=== PATIENT | female | born 1990 | race Caucasian/White ===

== ENCOUNTER 2023-05-15 09:51 | Emergency (ER) | payer OTHER, SELFPAY ==
[2023-05-15 09:54] VITALS: BP 110/45
--- NOTE | 2023-05-15 10:41 | ED.GENMED ---
History of Present Illness
General
Chief Complaint: Numbness
Source: patient
Time Seen by Provider: 05/15/23 10:02
Travel History
Have you had any contact with someone who has COVID-19?: No
Do you have any symptoms of coronavirus? Fever > 100 degrees, chills, cough, shortness of breath, sore throat, loss of taste or smell, muscle aches, or headache?: No
History of Present Illness
History of Present Illness:
32-year-old female presenting to the emergency department for evaluation of a multitude of symptoms that been ongoing for the last few months including various areas of paresthesia all over her body, facial/sinus congestion, today noticed some
difficulty breathing and chest discomfort which is what ultimately prompted her to come to the ER for further evaluation. Patient notes that sometime in the middle of January she started experiencing paresthesia and numbness sensation on her right
leg that over time spread to various areas of her body. Patient initially presented to [facility] where she had been admitted 1 time where they had performed an ultrasound of her leg to rule out DVT as well as MRI of her head and
back area which did not reveal any significant findings. Patient went back to their facility due to progressive and worsening of the symptoms without any specific etiology is found but notes that she had an elevated P ANCA test and is currently
scheduled to see a hotel or motel room service supervisor towards the end of May. Also of note, patient had an endoscopy due to some swallowing issues towards the middle of February and was told she had esophageal candidiasis and was given a prescription for fluconazole
to take but notes she did not start taking this until about 5 days ago because she does not like taking medications. Patient still notes some swallowing symptoms and notes that most of this is overall unchanged. Family history was mostly
noncontributory. Patient's mother and the patient herself have a history of thalassemia minor but no long-term complications from this.
Past History
Past History
ED Past Medical History: None
ED Past Surgical History: Orthopedic
Social History
Tobacco: Non-smoker
Alcohol: Occasional
Drug: None
Personal: Single
Living: with family
Employment: Employed
Review of Systems
Review of Systems
All Other Systems: ROS reviewed and negative except as documented in HPI and ROS
Phy Exam
Physical Exam
Physical Exam:
GENERAL: Alert , in no apparent distress
EYE: clear conjunctiva b/l
HEAD: NCAT
ENT: o/p clr, mmm. No tonsillar edema or exudates, tolerating secretions without difficulty.
CARDIAC: Regular rate and rhythm, no murmur.
LUNGS: Clear breath sounds bilaterally, no acute respiratory distress, no wheezes/rales/rhonchi
ABDOMEN: Soft, without focal tenderness, no r/g, no cvat
NEUROLOGICAL: Alert and oriented
SKIN: Warm and dry, skin intact.
MUSCULOSKELETAL: No edema, well perfused. Sensation grossly intact to light touch throughout extremities
PSYCH: Normal and appropriate interaction.
Scores
Heart Failure Risk
Heart Failure Risk Score: Not Applicable
Heart Score for Chest Pain Patients
STEMI patient?: Not applicable
Withdrawal Assessment of Alcohol
Withdrawal Assessment Completed?: Not applicable
Course
Orders/Labs/Results
Orders:
Orders
05/15/23 10:32
CT Chest Pe Study Urgent
Comment:
Reason For Exam: chest pain, SOB, tachy
Test Result ONCE
05/15/23 10:36
Electrocardiogram (*1) Urgent
Reason for Study: Shortness of Breath
EKG- Treatment ONCE
05/15/23 11:15
Complete Blood Count/With Diff Urgent
Comprehensive Metabolic Panel Urgent
HCG, Serum Qualitative Screen Urgent
Lyme Progressive Urgent
TSH Urgent
Troponin I Urgent
Urinalysis Reflex To Culture Urgent
Date Specimen was Collected: 05/15/23
Time Specimen was Collected: 10:41
Abnormal Lab Results
05/15/23
11:15
RBC 5.79 H 10^6/uL
(4.20-5.40)
Hgb 11.6 L g/dL
(12.0-16.0)
Hct 36.5 L %
(37.0-47.0)
MCV 63.0 L fL
(81.0-99.0)
MCH 20.0 L pg
(27.0-31.0)
MCHC 31.8 L g/dL
(33.0-37.0)
RDW 18.5 H %
(11.5-14.5)
Plt Count 404 H 10^3/uL
(130-400)
BUN 6 L mg/dl
(7-17)
Creatinine 0.5 L mg/dL
(0.6-1.0)
Albumin 5.1 H g/dl
(3.5-5.0)
Urine Ketones Trace A
(Negative)
05/15/23 11:15
05/15/23 11:15
Vital Signs
Initial and Last Documented VS:
Initial Vital Signs
Temp Pulse Resp BP
99.2 F 107 18 110/45
05/15/23 09:54 05/15/23 09:54 05/15/23 09:54 05/15/23 09:54
Last Documented Vital Signs
Temp Pulse Resp BP Pulse Ox
99.2 F 98 18 130/55 99
05/15/23 09:54 05/15/23 13:19 05/15/23 13:19 05/15/23 13:19 05/15/23 13:19
MDM/Problems Addressed
Differential Diagnosis Includes:
Considering PE given history of thalassemia combined with patient's chest discomfort and pleuritic nature pain today. She was also noted to be tachycardic in triage. I do not have concern for atypical ACS presentation. Overall I am not very
concerned over any emergent process given the longstanding nature of patient's symptoms and did express this to the patient. Will check a Lyme's test based off of the abnormal paresthesias patient has been experiencing.
MDM/Problems Addressed:
32-year-old female presented emergency department with a multitude of symptoms but notes that today she started to feel some chest discomfort and felt a little short of breath. Overall her exam is reassuring and likely not any emergent pathologies
however given the abnormal symptoms she has been experiencing over the last few months we will check set of labs, Lyme titers, EKG and troponin, CT of the chest was ordered as well. Will attempt to contact [facility] to obtain their records to
see what further tests have been done there. Patient ultimately was hoping to see a hotel or motel room service supervisor here in the emergency department today. I explained to them that I would be unable to get an emergent consultation from rheumatology but that I
would be happy to provide them with information for outpatient follow-up with them if she has not happy with her current rheumatology appointment. I also explained to patient that she would likely need to follow-up with her GI team for her
esophageal candidiasis but that her symptoms are likely continuing as even though she was diagnosed with this in February she did not start taking this medication till earlier this past week.
*Radiology
Radiology exam reviewed: radiology read reviewed
*Pulse Oximetry
Patient hypoxic: no
*EKG
Interpreted by ED Provider?: Yes
Comparison EKG: no comparison EKG present
Heart Rate: 76
Rate: normal
Rhythm: sinus
Timpson: normal axis
Ischemia: no ischemia
*[employer] Interpretation
Rate: normal
Rhythm: sinus
*Critical Care Note
Total Time (30-74mins, 75-104mins- exclusive of procedures): Not Applicable
Patient Management
Escalation/DeEscalation of care consider admission/obs:
Patient CT scan without any acute findings. Ultimately I did express to patient that I do not expect any emergent findings but that continued outpatient follow-up is recommended. She should continue her oral antifungal for her esophageal
candidiasis. Aware of return precautions emergency department but otherwise stable for discharge home.
ED Attending Note
-
Portions of this chart may have been created with voice recognition software.� Occasional wrong word or��sound alike� substitutions may have occurred due to the inherent limitations of voice recognition software.
Discharge Plan
Departure
Patient Disposition: Home (Routine Discharge)
Date of Disposition: 05/15/23
Time of Disposition: 12:50
Patient with high blood pressure during this ER visit?: No
Discharge Problem:
Paresthesia, Pleurisy
Instructions: Paresthesia (DC)
Referrals:
Anna Morales NP [Family Provider] -
Shauna Mcneil MD [Active] - (Rheumatology)
Interventions
Interventions:
*Risk Screen - Suicide Last Done: 05/15/23 11:51
*Neglect/Abuse Screening Last Done: 05/15/23 11:51
*ED COVID-19 Vaccine History Last Done: 05/15/23 09:54
*Nursing Disposition Last Done: 05/15/23 13:20
ED- Neurological Assessment Last Done: 05/15/23 11:51
Discharge Date and Time
Discharge Date/Time: 05/15/23 13:21
[2023-05-15 11:32] LABS: % Basophils 0.7 % (0-2); % Eosinophils 3.7 % (0-6); % Immature Granulocytes 0.3 % (0-0.5); % Lymphocytes 28.5 % (20.5-51.1); % Monocytes 4.8 % (1.7-9.3); Absolute Basophils 0.1 10^3/uL (0-0.2); Absolute Eosinophils 0.3 10^3/uL (0-0.7); Absolute Lymphocytes 2.1 10^3/uL (1.2-3.4); Absolute Monocytes 0.4 10^3/uL (0.1-0.6); Absolute Neutrophils 4.5 10^3/uL (1.4-6.5); Hematocrit 36.5 % (37.0-47.0); Hemoglobin 11.6 g/dL (12.0-16.0); Mean Corp Hgb Conc. 31.8 g/dL (33.0-37.0); Nucleated Red Blood Cells % 0 %; Platelet Count 404 10^3/uL (130-400); Red Blood Cell Count 5.79 10^6/uL (4.20-5.40); Red Cell Dist. Width 18.5 % (11.5-14.5); White Blood Cell Count 7.3 10^3/uL (4.8-10.8)
[2023-05-15 11:42] LABS: HCG, Serum Qualitative Screen Negative; Urine Albumin Negative (Neg - Trace); Urine Bilirubin Negative (Negative); Urine Character Clear (Clear); Urine Color Yellow; Urine Glucose Negative (Negative); Urine Ketone Trace (Negative); Urine Leukocyte Negative (Negative); Urine Nitrite Negative (Negative); Urine Occult Blood Negative (Negative); Urine Urobilinogen Negative (Neg - 1+)
[2023-05-15 11:45] LABS: ALT (SGPT) 18 U/L (0-35); AST (SGOT) 21 U/L (14-36); Albumin 5.1 g/dl (3.5-5.0); Alkaline Phosphatase 70 U/L (38-126); Blood Urea Nitrogen 6 mg/dl (7-17); Carbon Dioxide 24 mmol/L (22-30); Chloride 104 mmol/L (98-107); Glucose 90 mg/dl (70-99); Potassium 4.2 mmol/L (3.5-5.1); Sodium 138 mmol/L (135-145); Total Bilirubin 0.9 mg/dl (0.2-1.3); Total Protein 8.2 g/dl (6.3-8.2); eGFR > 60.00
[2023-05-15 11:56] LABS: Troponin I < 0.012 ng/ml
[2023-05-15 12:16] LABS: TSH 1.56 uIU/ml (0.47-4.68)
[2023-05-15 13:19] VITALS: BP 130/55
[2023-05-16 16:19] LABS: Lyme Antibody Screen, EIA Negative (Negative)
== END 2023-05-15 13:21 | disposition home or self-care (01) ==
LOC: EMR 09:51
PROVIDERS: Physician Assistant Medical; EMERGENCY PHYSICIAN Student in an Organized Health Care Education/Training Program; FAMILY PHYSICIAN Nurse Practitioner Adult Health
DX: R09.1 Pleurisy (principal); R20.2 Paresthesia of skin
CPT/HCPCS: 99285; 71275; 80053; 81003; 84443; 84484; 84703; 85025; 86618; 93005; Q9967